=== PATIENT | female | born 1955 | race Caucasian/White ===

== ENCOUNTER 2016-07-21 00:07 | Emergency (ER) | payer BC ==
[~2016-07-21] VITALS: Ht 162.6 cm; Wt 59.7 kg
[~2016-07-21 00:07] MED LIST: ADDERALL XR 1515 MG PO; AMPHETAMINE SAL10 MG PO; LEXAPRO20 MG
[2016-07-21] MEDS ORDERED: IBUPROFEN600 MG PO (00:12)
[2016-07-21] MEDS ORDERED: PREDNISONE10 MG PO (00:13)
[2016-07-21 01:12] LABS: HEMATOCRIT 35.7 % (36.0-46.0); MCH 31.5 PG (29.0-34.0); MCHC 33.9 G/DL (30.0-36.0); MEAN PLAT.VOLUME 10.1 uM^3 (9.5-12.4); PLATELET COUNT 240 K/uL (156-360); RBC DIS.WIDTH-CV 13.8 % (11.8-14.6); RBC DIS.WIDTH-SD 45.7 % (39-53); RED BLOOD COUNT 3.84 M/uL (3.80-5.20); WHITE BLOOD COUNT 10.6 K/uL (4.1-10.2)
[2016-07-21 01:22] LABS: CHLORIDE 103 mEq/L (99-109); POTASSIUM 3.8 mEq/L (3.7-5.4); SODIUM 139 mEq/L (136-147)
[2016-07-21 01:24] LABS: GLUCOSE 139 mg/dL (70-99)
[2016-07-21 01:25] LABS: ANION GAP 9 MEQ/L (2-14)
[2016-07-21 01:26] LABS: TOTAL BILIRUBIN 0.4 mg/dL (0.0-1.0)
[2016-07-21 01:28] LABS: ALKALINE PHOSPHATASE 71 IU/L (3-129); GFR ESTIMATE (CALCULATED) > 59 mL/min/
[2016-07-21 01:29] LABS: UREA NITROGEN (BUN) 12 mg/dL (9-23)
[2016-07-21 01:31] LABS: LIPASE 14 U/L (1.0-51.0)
[2016-07-21 03:17] LABS: BILIRUBIN NEGATIVE; BLOOD NEGATIVE; COLOR YELLOW ((YELLOW)); GLUCOSE (STRIP) NEGATIVE; KETONES NEGATIVE; LEUKOCYTES NEGATIVE; NITRITE NEGATIVE; PH, URINE 7.5 (5-8); PROTEIN (STRIP) NEGATIVE; SPECIFIC GRAVITY 1.019 (1.000-1.030); UROBILINOGEN 0.2 MG/DL (0.2-1.0)
[2016-07-21 03:19] LABS: ADD MIUA? NO; UCUL ADDED? NO
[2016-07-21] MEDS ORDERED: CARAFATE100 MG/ML PO (03:45)
[2016-07-21] MEDS ORDERED: PERCOCET 5/31 TABLET PO (03:45)
[2016-07-21] MEDS ORDERED: RANITIDINE HCL150 MG PO (03:45)
[2016-07-21 03:54] VITALS: BP 121/82
== END 2016-07-21 03:46 | disposition home or self-care (01) ==
LOC: EME → EDBD 00:07 → EME 03:46
PROVIDERS: Emergency Medicine
DX: K29.70 Gastritis, unspecified, without bleeding (principal); N32.9 Bladder disorder, unspecified; Z88.6 Allergy status to analgesic agent
CPT/HCPCS: 72131; 74176; 80053; 81003; 83605; 83690; 85027; 99281; 99285; J1200; J2270; J2405; J3010; J7030; S0028